=== PATIENT | male | born 1980 | race Caucasian/White ===

== ENCOUNTER 2021-05-20 22:09 | Emergency (ER) | payer MEDICAID, SELFPAY ==
[2021-05-20 22:10] VITALS: BP 140/85; PULSE 119; RESP 20; TEMP 36.7; O2SAT 98; BMI 22.8
--- NOTE | 2021-05-20 22:17 | EKG12_ITS ---
Test Reason : CP Blood Pressure : / mmHG Vent. Rate : 128 BPM Atrial Rate : 128 BPM P-R Int : 158 ms QRS Dur : 082 ms QT Int : 246 ms P-R-T Axes : 064 070 094 degrees QTc Int : 359 ms Sinus tachycardia Right atrial enlargement Septal infarct , age undetermined Abnormal ECG Confirmed by KEIRA CANCINO, KALEB ([id number]), editorial intern MARISSA GONZALEZ ([id number]) on 05/21/2021 1:32:43 PM Referred By: DIRK Confirmed By:ARTEM CROCKETT MD
--- NOTE | 2021-05-20 22:17 | ED.VIS.CHEST ---
HPI History of Present Illness Chief Complaint: Chest Pain Detail of Chief Complaint: Chest pain that started a week ago Informant: patient Narrative Narrative: Patient presents to the emergency department complaint of chest pain that started a week ago. Patient states he had continuous pain over that time. He describes pain underneath his incision where he had open heart surgery in December 2020 to repair a valve and he is not sure which valve. Surgery was done at [facility]. Patient states the pain is sharp and worse with movement and deep breath. Patient states even his shirt touching his skin makes it hurt. Currently rates his pain a 4 out of 10. Patient denies any nausea or vomiting with it. He denies shortness of breath. He denies diaphoresis. Pain is not exertional. Prior Similar Symptoms: No PFSH PFSH Medical History (Updated 05/20/21 @ 23:[address] Mitchell Solares, DO) Diabetes Neuropathy Allergy/AdvReac Type Severity Reaction Status Date / Time codeine AdvReac Hives Verified 05/20/21 22:12 Surgical History (Updated 05/20/21 @ 22:14 by Alejandra Coffey) History of heart valve replacement Hx of BKA Social History Smoking Status: Former smoker ROS ROS ED Review of Systems ROS Unobtainable: other Constitutional Constitutional ED: Reports lethargy; Denies chills, fever(s), sweats or weight loss Eyes Eyes: Denies blurry vision, change in vision or diplopia ENT ENT ED: Denies rhinorrhea or sore throat Cardiovascular Cardiovascular: Reports chest pain and racing heartbeat; Denies orthopnea Respiratory/Chest Respiratory/Chest: Reports dyspnea and dyspnea on exertion; Denies cough, orthopnea or sputum Gastrointestinal Gastrointestinal: Denies abdominal pain, diarrhea, nausea or vomiting Genitourinary Genitourinary ED: Denies dysuria, hematuria or urinary frequency Musculoskeletal Musculoskeletal: Denies arthralgias, back pain, myalgias or neck pain Integumentary Denies abscess, Abrasions or rash Neurologic Neurologic: Denies headache(s) or weakness Psychiatric Psychiatric: Denies anxiety, depression or suicidal thoughts Endocrine Endocrinology: Denies polydipsia, polyphagia or polyuria Hematologic/Lymphatic Hematologic/Lymphatic: Denies easy bleeding, easy bruising or lymphadenopathy Allergic/Immunologic Allergic/Immunologic ED: Denies mouth swelling, tongue swelling or urticaria EXAM Physical Exam Const Vital Signs: 05/20/21 22:10 05/20/21 22:18 05/20/21 22:19 Temperature 98.0 F Temperature Source Temporal Pulse Rate 119 H Respiratory Rate 20 H Respiratory Effort Normal Blood Pressure 140/85 H Blood Pressure Mean 103 Pulse Ox 98 Oxygen Delivery Method Room Air Room Air 05/20/21 23:10 Temperature Temperature Source Pulse Rate 105 H Respiratory Rate 19 H Respiratory Effort Blood Pressure 133/81 H Blood Pressure Mean Pulse Ox 98 Oxygen Delivery Method Positive well nourished and well developed General Appearance ED: well developed and NAD HEENT Reports TM's clear and moist mucous membranes normocephalic and atraumatic; Negative for trauma or tenderness Tympanic Membrane ED: Yes TM's clear Eyes PERRL and EOMs intact bilaterally General Eye ED: Negative for pale conjunctiva or scleral icterus Neck no lymphadenopathy, supple and no JVD General: Negative for tenderness Chest Wall palpation of chest normal Chest Narrative: Patient with noted sternotomy scar from prior open heart surgery. The infection looks well-healed without evidence of erythema or warmth or drainage. Patient has tenderness palpation over the area. Chest: Negative for tenderness Resp normal respiratory effort and clear to auscultation bilaterally Effort and Inspection: Negative for respiratory distress or pain with movement Auscultation: Negative for rhonchi, wheezes or diminished lung sounds Cardio regular rate, regular rhythm, S1 normal heart sound, S2 normal heart sound and no murmurs Peripheral Pulses: pulses 2+ throughout GI normal to inspection, nondistended, normoactive bowel sounds, soft to palpation, non-tender, non-distended and no masses Back/Spine no CVA tenderness and no thoracic nor lumbar tenderness Extremity normal to inspection General Extremety ED: Negative for edema General Extremity: Negative for edema Neuro oriented x3, CN's II-XII intact bilaterally, no sensory deficits noted and gait normal Sensorium / Orientation: awake, alert, oriented to person, oriented to place and oriented to time Motor Exam: strength 5/5 throughout and strength abnormal Psych mental status grossly normal Skin no rashes or lesions noted and no wounds Heart Score History: Slightly/Non-Suspicious ECG: Nonspecific Repolarization Age: </= 45 years Risk Factors: 1 or 2 Risk Factors Troponin: </= Normal Limit Score: 2 MDM MDM MDM Narrative Medical decision making narrative: IV line established on arrival. Patient placed on a hall monitor. He received aspirin. CBC with differential was normal. D-dimer was normal. Troponin was normal. Patient's blood glucose was elevated 4 1. Patient states he does not check it very often and has been noncompliant with his insulin. Patient I believe has musculoskeletal chest pain. He does not anything for pain here and states that he has ibuprofen at home. Patient advised to follow-up with his primary care physician 3 to 5 days. Lab Data Attestation: I reviewed the patient's lab results. Labs: Laboratory Results - last 24 hr 05/20/21 05/20/21 05/20/21 22:10 22:10 22:10 WBC 8.7 RBC 5.77 Hgb 14.8 Hct 44.7 MCV 77.5 L MCH 25.6 L MCHC 33.1 RDW Std Deviation 45.6 H RDW Coeff of Loc 16.3 H Plt Count 307 MPV 9.9 Immature Gran % (Auto) 0.200 Neut % (Auto) 47.8 Lymph % (Auto) 40.3 [place] % (Auto) 9.7 Eos % (Auto) 1.5 Baso % (Auto) 0.5 Absolute Neuts (auto) 4.2 Absolute Lymphs (auto) 3.50 Nucleated RBC % 0 D-Dimer Quant (PE/DVT) 0.41 Sodium 134 L Potassium 3.8 Chloride 100 Carbon Dioxide 25.0 Anion Gap 9 BUN 12 Creatinine 0.85 Estim Creat Clear Calc 104.25 Est GFR (MDRD) Af Amer 129 Est GFR (MDRD) Non-Af 107 BUN/Creatinine Ratio 14.2 Glucose 401 H Calcium 9.3 Troponin I High Sens 22 Radiography Chest X-Ray - ED: 1 View Diagnostic Testin view chest x-ray obtained interpreted by myself as no acute disease process. Official report from radiology pending. EKG Initial EKG: Attestation: I personally reviewed and interpreted this EKG as follows: Comments: Sinus rhythm with a ventricular rate of [address] changes noted laterally. Prior EKG tracings: not available for review Discharge Plan Triage Chief Complaint: Chest Pain ED Provider: Mitchell Solares Dx/Rx/DC Orders Clinical Impression: Acute chest wall pain, Hyperglycemia due to type 2 diabetes mellitus Instructions: After Heart Valve Surgery: At Home, CHEST WALL PAIN, Costochondritis (/Toddler) Primary Care Provider: Care Physician,No Primary Referrals: Ranjan Sánchez MD [STAFF PHYSICIAN] - 3-5 Days Care Physician,No Primary [Primary Care Provider] - Disposition Disposition: Home, Self Care
--- NOTE | 2021-05-20 22:25 | RAD_ITS ---
INDICATION: chest pain EXAMINATION/TECHNIQUE: X-RAY - XR Chest 1 View COMPARISON: None. FINDINGS: LINES/DEVICES: None. Intact sternotomy wires. LUNGS: Symmetric normal lung volumes. No airspace opacity or abnormal interstitial pattern. No nodule or mass. No pleural effusion or pneumothorax. MEDIASTINUM AND CARDIOVASCULAR STRUCTURES: Normal size and contour of the cardiomediastinal silhouette. No evidence of pulmonary vascular congestion. BONES AND SOFT TISSUES: No abnormality within limits of the exam. RAD/Chest 1 View (Portable) IMPRESSION: 1. No radiographic evidence of acute cardiopulmonary disease. Electronically Signed: Sathish Quinn DO at 23:15 EST Tel , Service support ,
[2021-05-20 22:26] LABS: Absolute Neutrophil Count 4.2 X10^3/uL (2.0-7.7); Basophil# 0.04 X10^3/uL; Basophil% 0.5 % (0-1); Eosinophil# 0.13 X10^3/uL; Eosinophils% 1.5 % (0-5); Hematocrit 44.7 % (40-54); Hemoglobin 14.8 g/dL (13.0-16.5); Lymphocyte % 40.3 % (19-41); Mean Corp Hgb Conc 33.1 g/dL (32-36); Mean Corpuscular Hgb 25.6 pg (27.0-32.0); Mean Corpuscular Volume 77.5 fL (80-94); Mean Platelet Vol. 9.9 fl (6.2-12.0); Monocyte# 0.84 X10^3/uL; Monocyte% 9.7 % (0-10); NRBC Flagged by Analyzer 0 % (0-5); Neutrophil # 4.15 X10^3/uL (2.7-7.7); Neutrophil % 47.8 % (47-70); Platelet Count 307 K/mm3 (150-450); RBC Distribution Width CV 16.3 % (11.6-14.6); RBC Distribution Width SD 45.6 fl (35.1-43.9); Red Blood Count 5.77 M/mm3 (4.6-6.2); White Blood Count 8.7 K/mm3 (4.4-11.0)
[2021-05-20] MEDS: 0.9% Normal Saline 1,000 ML 150 ML IV (22:27)
--- NOTE | 2021-05-20 22:33 | ED.RN ---
CALLED [facility] WHERE PATIENT HAD OPEN HEART, THEY WOULD NOT SEND US THE MEDICAL RECORDS FOR THIS PATIENT AND TOLD US TO CALL MEDICAL RECORDS IN THE MORNING.
[2021-05-20 22:39] LABS: D-Dimer Quantitative (DVT/PE) 0.41 FEU/ug/m (0.27-0.49)
[2021-05-20 22:44] LABS: Anion Gap 9 (5-15); BUN 12 mg/dL (7-18); BUN/Creat Ratio 14.2 RATIO (10-20); Calcium,Total 9.3 mg/dL (8.5-10.1); Chloride 100 mmol/L (98-107); Creatinine, Serum 0.85 mg/dL (0.70-1.30); EST Glomerular Filtration Rate 107 mL/min (>60); Est Glom Filt Rate - Afr Amer 129 mL/min (>60); Estimated Creatinine Clearance 104.25 ml/min; Glucose 401 mg/dL (74-106); Potassium 3.8 mmol/L (3.5-5.1); Sodium Level 134 mmol/L (136-145); Troponin-I HS 22 pg/mL (3.0-78.0)
[2021-05-20] MEDS: Insulin Lispro 100 UNIT/ML INSULN.PEN 10 UNIT SC (23:04)
[2021-05-20 23:10] VITALS: BP 133/81; PULSE 105; RESP 19; O2SAT 98
== END 2021-05-21 00:55 | disposition home or self-care (01) ==
PROVIDERS: Emergency Provider Emergency Medicine; Visit Provider Emergency Medicine
DX: R07.89 Other chest pain (principal); E11.65 Type 2 diabetes mellitus with hyperglycemia; Z87.891 Personal history of nicotine dependence
CPT/HCPCS: 71045; 80048; 84484; 85025; 85379; 93005; 96360; 96361; 99285; J7030; A4216

== ENCOUNTER 2023-11-21 15:00 | Outpatient (RCR) | payer MEDICAID, SELFPAY ==
--- NOTE | 2023-11-17 09:48 | HP.PTEVAL ---
Patient's Visit Information Visit Information Visit Information: EVELIO RUCKER is a 43 year old M referred to Physical Therapy by Olimpia Villegas MD with a diagnosis of S/P R above knee ambulation. Date of Evaluation: 11/16/23 Physical Therapist: Rene Wilkins DPT Visit Plan Frequency: 1x/Week Duration: 1 Week Plan: Pt. has been evaluated for need for inpatient rehab. I feel like he would very well in this setting and has a great need for gait training to increase overall [place]. Subjective Subjective: Pt. is here today for his initial evaluation with diagnosis of S/P AKA on Apr 2023. Pt. also has a history of L BKA in 2021. Pt. is currently functioning at a wheel chair level, very little ambulation except transfers with his L prosthetic. Pt. does have his R prosthetic, but no shoe on the foot. Pt. reports being able to transfer well with use of slide transfers, but does not have a shower chair so he has been using sponge bathing for bathing. Pt. reports overall no pain, but is limited with his independence. He reports being basically I prior to his most recent surgery. He reports no PT since his amputation. He reports mostly staying in the home due to his lack of independence. He would like to get back to walking in order to get back to going out in community. Limited use of new R prosthetic due to fear of falling and lack of confidence in his new prosthetic. Objective Objective: POSTURE: Seated normal, good stability noted. Pt. is able to reach outside of ZARI with out LOB, very stable in seated position. PALPATION: Pt. has no pain with palpation of either LE. He does have marked skin psoriasis, but no skin break down. NEURO: Pt. reports normal sensation in BLEs. ROM: RLE: Pt. has some tightness in his R hip flexor. LLE: knee: normal ROM, hip Normal ROM, HS length 75deg in 90/90. MMT: RLE: hip: flexion 4+/5, abd 4/5, ext 4/5. LLE: knee: ext 5/5, flexion 5/5; hip: flexion 4+/5, abd 4/5, ext 4/5. Core strength fair. R shoulder: 5/5 throughout. R elbow 5/5 throughout. L shoulder: 5/5 throughout. L elbow 5/5 throughout. Transfers: Pt. is I from WC to bed slide transfer. Pt. is I with sit to stand with use of L prosthetic, min A with use of [place] prosthetics with FWW. Pt. is very fearful of R knee giving out on him. GAIT: Pt. is able to ambulate with both prosthetics with use of FWW with MODA. He is very strong upper body and relies on this during R stance phase. His R joint did buckle on him 3 times during walking 16'. Pt. reports more fear of falling rather than fatigue. He was missing a shoe on his R prosthesis which also limited the functionality of his prosthesis and his stability. Wt. shifting in FWW: Pt. was able to complete without LOB, but did heavily use his UEs during R stance phase. He was able to don and doff prosthesis I without issues. At this point in time I feel Evelio would do great in Inpatient rehab to really focus on ADLs, gait, transfers, and general functional mobility with use of his new prosthesis in order to become more I with in home and community. Balance/Special Test Scores Lower Extremity Functional Score: 8 TUG Test Time Seconds: 58 Goals Goal 1:: STG: Pt. to be evaluation for need for Inpatient rehab. (Pt. would benefit from PT in the Inpatient rehab setting. He would be able to tolerated the intensity and time. I believe he really do well in this setting.) Goal Time Frame: 1 Week Rehabilitation Potential Physical Therapy Diagnosis: Pt. has signs and symptoms consistent with S/P R above knee amputation in Dec. Pt. has marked weakness, but more notably decreased functional mobility. He would really benefit from inpatient rehab to work on functional mobility, gait, transfers, community ambulation and stair negotation. Rehabilitation Potential: Good Anticipated Interventions Patient/Client Instruction: Educate patient on: Condition, Plan of Care, Risk Factors and Benefits of Fitness Program For the Purpose of:: To improve decision making, To facilitate caregiver knowledge, To improve self management, To prevent re-injury and To improve ability to perform tasks related to life management For the Purpose of:: To decrease pain, To increase ROM, To improve nutrient delivery to tissue, To increase oxygenation perfusion and To improve muscle performance and motor function Text: Thank you for the opportunity to evaluate your patient. For Medicare and Medicare HMO plans, please review the plan of care and approve it. It will need to be FAXED BACK to us at [phone] for Medicare purposes. For Medicare only, by signing this I certify the plan of care. Please let me know if there are questions or concerns regarding this plan of care. Physician Signature: Date:
--- NOTE | 2023-11-22 11:13 | HP.OTEVAL_ITS ---
Patient's Visit Information Visit Information Visit Information: EVELIO RUCKER is a 43 year old M, referred to Occupational Therapy by Olimpia Villegas MD, with a diagnosis of DIFFICULTY WITH ADLS, ABOVE KNEE AMPUTATION. Date of Evaluation: 11/21/23 Occupational Therapist: Elana Yuen Subjective Subjective: 43 year old male arrives with dx of hx of AKA, right (HCC), BKA, left (HCC), and impaired mobility and ADLs. Pt arrives using a wheelchair. Pt uses a L LE prosthetic for standing and walking w/ walker. Pt is not walking at all right now on own and used walker w/ PT. Can complete self care standing with support from sink counter. Pt can do most transfers (including car) however, is unable to shower and cook independently. Shower has a tub ledge, a curtain, and no handrails. Pt transfers to shower chair outside of shower to wash hair/sponge bathe. Insurance did not cover shower transfer bench. Currently lives with mother who can assist with cooking, cleaning, washing is hair. Wants to gain confidence with walking. Denies pain/numbness/tingling. Not working currently and is in process of filing for disability. Pt wants to return to walking I and gain more confidence as well as returning to normal ADLs such as bathing, cook ing, and other hobbies. pt with difficulty to navigate in his bathroom using his w/c d/t size limitations, difficulty to ambulate and not owning proper bathroom AE. this is patient's top priority along with regaining ambulation is to be able to take a shower safely as he currently has fear of falling. Objective Objective/Observation: pt arrives using wheelchair. mother present for last 10 min of evaluation. ROM ROM Comments: BUE ROM WFL Strength Strength Comments: BUE WFL Nine Hole Peg Comments: no concerns regarding [facility] Quick DASH-Disab of Arm,Shoulder& Hand Quick DASH Score: 22.7250 Rehabilitation General Assessment: pt presenting with BLE amputations that are impacting his functional indep at home with ADLs/IADLs. pt's main goals are to improve gait, ambulation, indep in self care, and cooking so that he can care for himself instead of his mom helping him. pt is being evaluated for admission into [facility] for inpatient rehab. pt is very motivated to gain as much independence as possible and therapist feels that pt would be able to tolerate frequency and intensity of inpatient rehab in order to gain indep at home. pt would benefit from inpatient therapy setting in order to learn tub transfers safely while managing BLE amputations while in a safe environment in order to transfer kno wledge to home setting. this will help build pt's confidence in his own abilities to perform this tasks safely to reduce risk of falling. pt would also benefit from improving ability to bathe independenlty while using AE as needed to compensate for inability to stand while showering. Rehabilitation Potential: Good Anticipated Interventions Anticipated Interventions: ADL Training, Education re assistive Equipment, Education re Diagnosis and Caregiver Training Visit Plan Frequency: 1x/Week Duration: 1 Week General Plan: Pt. has been evaluated for need for inpatient rehab. I feel like he would very well in this setting and has a great need for indep with shower transfers and bathing to improve overall independence at home to reduce fall risk in bathroom. TEXT: Thank you for the opportunity to evaluate your patient. For Medicare and Medicare HMO plans, please review the plan of care and approve it. It will need to be FAXED BACK to us at [phone] for Medicare purposes. Please let me know if there are questions or concerns regarding this plan of care. Physician Signature: Date:
--- NOTE | 2023-11-22 11:16 | HP.OTEVAL ---
Patient's Visit Information Visit Information Visit Information: EVELIO RUCKER is a 43 year old M, referred to Occupational Therapy by Olimpia Villegas MD, with a diagnosis of DIFFICULTY WITH ADLS, ABOVE KNEE AMPUTATION. Date of Evaluation: 11/21/23 Occupational Therapist: Elana Yuen Subjective Subjective: 43 year old male arrives with dx of hx of AKA, right (HCC), BKA, left (HCC), and impaired mobility and ADLs. Pt arrives using a wheelchair. Pt uses a L LE prosthetic for standing and walking w/ walker. Pt is not walking at all right now on own and used walker w/ PT. Can complete self care standing with support from sink counter. Pt can do most transfers (including car) however, is unable to shower and cook independently. Shower has a tub ledge, a curtain, and no handrails. Pt transfers to shower chair outside of shower to wash hair/sponge bathe. Insurance did not cover shower transfer bench. Currently lives with mother who can assist with cooking, cleaning, washing is hair. Wants to gain confidence with walking. Denies pain/numbness/tingling. Not working currently and is in process of filing for disability. Pt wants to return to walking I and gain more confidence as well as returning to normal ADLs such as bathing, cooking, and other hobbies. pt with difficulty to navigate in his bathroom using his w/c d/t size limitations, difficulty to ambulate and not owning proper bathroom AE. this is patient's top priority along with regaining ambulation is to be able to take a shower safely as he currently has fear of falling. Objective Objective/Observation: pt arrives using wheelchair. mother present for last 10 min of evaluation. ROM ROM Comments: BUE ROM WFL Strength Strength Comments: BUE WFL Nine Hole Peg Comments: no concerns regarding FMC Quick DASH-Disab of Arm,Shoulder& Hand Quick DASH Score: 22.7250 Rehabilitation General Assessment: pt presenting with BLE amputations that are impacting his functional indep at home with ADLs/IADLs. pt's main goals are to improve gait, ambulation, indep in self care, and cooking so that he can care for himself instead of his mom helping him. pt is being evaluated for admission into [facility] for inpatient rehab. pt is very motivated to gain as much independence as possible and therapist feels that pt would be able to tolerate frequency and intensity of inpatient rehab in order to gain indep at home. pt would benefit from inpatient therapy setting in order to learn tub transfers safely while managing BLE amputations while in a safe environment in order to transfer knowledge to home setting. this will help build pt's confidence in his own abilities to perform this tasks safely to reduce risk of falling. pt would also benefit from improving ability to bathe independenlty while using AE as needed to compensate for inability to stand while showering. Rehabilitation Potential: Good Anticipated Interventions Anticipated Interventions: ADL Training, Education re assistive Equipment, Education re Diagnosis and Caregiver Training Visit Plan Frequency: 1x/Week Duration: 1 Week General Plan: Pt. has been evaluated for need for inpatient rehab. I feel like he would very well in this setting and has a great need for indep with shower transfers and bathing to improve overall independence at home to reduce fall risk in bathroom. TEXT: Thank you for the opportunity to evaluate your patient. For Medicare and Medicare HMO plans, please review the plan of care and approve it. It will need to be FAXED BACK to us at [phone] for Medicare purposes. Please let me know if there are questions or concerns regarding this plan of care. Physician Signature: Date:
--- NOTE | 2024-05-08 08:43 | HP.OT.NRP ---
Patient Information Patient Information: EVELIO RUCKER was seen in my office for initial evaluation on 11/21/23. The following Plan of Care was established for this patient: POC Established Initial Frequency: 1x/Week Initial Duration: 1 Week Anticipated Interventions Anticipated Interventions: ADL Training, Education re assistive Equipment, Education re Diagnosis and Caregiver Training Last Seen Last Seen: This patient was last seen in our office 11/21/23. Pertinent comments regarding their Occupational therapy will appear below: pt was seen for OT eval only. No further apts were scheduled. pt d/c due to time lapse in services. At this point I will be discontinuing this patient from occupational therapy. I would be happy to see this patient again in the future if found appropriate by the physician. Thank you! Shayna Lundy, OTR/L, CHT
== END 2023-11-21 19:00 | disposition home or self-care (01) ==
LOC: OT 15:00
PROVIDERS: PCP Nurse Practitioner Family; Referring Provider Surgery Vascular Surgery; Visit Provider Surgery Vascular Surgery
DX: Z74.09 Other reduced mobility (principal); Z78.9 Other specified health status; Z89.611 Acquired absence of right leg above knee; Z89.512 Acquired absence of left leg below knee
CPT/HCPCS: 97161; 97165

== ENCOUNTER 2024-08-30 13:22 | Outpatient (RCR) | payer MEDICAID, SELFPAY ==
--- NOTE | 2024-08-30 14:24 | HP.PTEVAL_ITS ---
Patient's Visit Information Visit Information Visit Information: EVELIO RUCKER is a 44 year old M referred to Physical Therapy by Olimpia Villegas MD with a diagnosis of R above knee amputation, L below knee amputation. Date of Evaluation: 08/30/24 Physical Therapist: Rene Wilkins DPT Visit Plan Frequency: 1x/Week Duration: 1 Week Plan: Pt. would benefit from Inpatient rehab to increase in his ability to complete transfers, gait, dynamic and static balance in order to increase in overall I at home. He is currently able to be I at wheel chair level and does not walk much with his R prosthetic due to fear of falling and instability in stance. Subjective Subjective: Pt. is here today for his initial evaluation for need for inpatient rehab after B LE ambulation. Pt. 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 Pt. also has a below knee amputation in 2020, after diabetic ulcer that became infected after having his foot amputated. Pt. has been in a since. Pt. also had a heart surgery 2020. Pt. has prosthetics for both legs, but has not been able to walk with his RLE prosthetic due to fear of it giving out on him and weakness. Pt. is I with all bed mobility and transfers. He is limited with his house secondary to savage in the way for animals in the home. Pt. reports no pain, N/T. No meds. Pt. has not worn his R prosthetic due to fear of falling with use. Objective Objective: POSTURE: Pt. has normal sitting posture. No issues PALPATION: Pt. has psoriais on LEs, but no marked issues otherwise. NEURO: Pt. has normal sensation throughout BLEs. ROM: R hip: flexion full motion, ext 0deg with over pressure, abd 35deg. LLE: knee: 0-0-120deg, hip: flexion 120deg, abd 45deg, ext 10deg. MMT: RLE; hip: flexion 36.5#, and 41.7#, ext 36.7# LLE; hip: flexon 32.5#, abd 39.4, ext 38.5# Transfers: Pt. is able to complete SPT with FWW OTILIO with 1 LE donned Pt. is able to complete slide transfer I Pt. is able to complete SPT with bilateral LEs with FWW, but is very hesitant to bearing wt through R leg and his prosthetic tends to bend and he does not trust it. He has the strength to proceed with gait training, but would benefit from intense therapy to increase ability to walk and be come I at home. Pt. was able to ambulate 35' with FWW with LLE only with heavy use of UEs. We added his RLE and FWW. He was able to ambulate 37' but heavily used UEs during R stance phase due to R knee sudden flexion. He is able to stabilize in stance without AD, but has to lean forward with keeping his COG posteriorly in order to maintain R knee extension. When he tries to stand upright his R prosthetic tends to buckle causing him to lose his balance. He is very strong in BLEs and UEs. He does have marked R hip flexor tightness. In my opinion Evelio would benefit from Inpatient stay to increase his ability with all functional mobility. He has issues with his stability without use of UEs in AD for safety. Pt's R prosthetic tends to buckle with increased upright posture. Balance/Special Test Scores Lower Extremity Functional Score: 10 Goals Goal 1:: STG: Pt. to be evaluated for need for inpatient rehab PT. Rehabilitation Potential Physical Therapy Diagnosis: Pt. has signs and symptoms consistent with R above knee amputation, L below knee amputation. Pt. has not been able to use his R prosthetic due to fear of falling. Pt. is not doing well with his strength, but would benefit from inpatient rehab to work on functional mobility allowing for increased I at home. Rehabilitation Potential: Good Anticipated Interventions Patient/Client Instruction: Educate patient on: Condition, Plan of Care, Risk Factors and Benefits of Fitness Program For the Purpose of:: To increase ROM, To improve nutrient delivery to tissue, To increase oxygenation perfusion, To improve decision making, To facilitate caregiver knowledge, To improve self management, To prevent re-injury and To improve ability to perform tasks related to life management Therapeutic Exercise to Include: Strength training, Endurance training, Balance training, Coordination, Flexibilty training and Gait and locomotor training For the Purpose of:: To decrease pain, To decrease swelling/inflammation, To increase ROM, To improve nutrient delivery to tissue, To increase oxygenation perfusion, To improve muscle performance and motor function, To improve ability to perform ADL's and To increase tolerance to activity/condition/position Text: Thank you for the opportunity to evaluate your patient. For Medicare and Medicare HMO plans, please review the plan of care and approve it. It will need to be FAXED BACK to us at [phone] for Medicare purposes. For Medicare only, by signing this I certify the plan of care. Please let me know if there are questions or concerns regarding this plan of care. Physician Signature: D ate:
--- NOTE | 2024-08-30 15:23 | HP.OTEVAL_ITS ---
Patient's Visit Information Visit Information Visit Information: EVELIO RUCKER is a 44 year old M, referred to Occupational Therapy by Olimpia Villegas MD, with a diagnosis of L BKA, R AKA. Date of Evaluation: 08/30/24 Occupational Therapist: Deirdre Haynes Subjective Subjective: Pt is a 44 y/o male who presents for this OT evaluation for potential placement to [facility] due to bilateral LE amputations with R AKA (2022), and L BKA (2020). Pt lives at home with family. Pt reports modified independence with ADLs due to necessity to be in w/c at this time. He presents with decreased independence in ability to participate in IADLs due to environmental barriers from decreased strength and endurance with use of prosthetics. ADLs Comments: Pt reports independence with all ADLs with mod I, able to transfer to toilet and couch from w/c. Pt utilizes tub bench for showering. Increased difficulty with IADLs due to environmental barriers, requiring family present to assist with needs. Would like to be independent with prosthetic to mobilize around home for ADLs/IADLs. Objective Objective/Observation: Pt agreeable and participates to skilled intervention for evaluation. ROM Shoulder: R&L: WNL Elbow: R&L: WNL Forearm: R&L: WNL Wrist: R&L: WNL Opposition: R&L: WNL ROM Comments: All ROM WNL with exception of L 5th digit, limited by psoriasis Strength Shoulder: R:22.0# L: 19.6# Elbow: R:22.9# L: 35.6# Forearm: R:23.0# L: 26.2# Wrist: R:13.6# L: 17.0# Agricultural Extension Specialist: R:75# L: 70# Lateral Pinch: R:14# L: 10# Tripod Pinch: R:14# L: 6# Tip-to-Tip Pinch: R:11# L: 4# Strength Comments: Strength limited for age and safe functional management for performance with ADLs/IADLs. Quick DASH-Disab of Arm,Shoulder& Hand Quick DASH Score: 36.3625 Rehabilitation General Assessment: Pt lives at home with family, in modular home, with 4 steps to enter. Pt reports modified independence with ADLs, utilizing w/c throughout home, limiting ability to mobilize for IADL participation. Family completes all IADLs at this time due to environmental barriers. Pt would like to participate in mobility with prosthetics around home, but require increased safety, strength, endurance and dynamic standing balance to participate in ADLs/IADLs to full capacity. Pt would benefit from continued extensive therapy for safe participation with ADLs/IADLs due to safety concerns and transportation concerns. Rehabilitation Potential: Good Visit Plan Frequency: IPR/TCU TEXT: Thank you for the opportunity to evaluate your patient. For Medicare and Medicare HMO plans, please review the plan of care and approve it. It will need to be FAXED BACK to us at [phone] for Medicare purposes. Please let me know if there are questions or concerns regarding this plan of care. Physician Signature: Date:
--- NOTE | 2024-08-30 15:23 | HP.OTEVAL_ITS ---
Patient's Visit Information Visit Information Visit Information: EVELIO RUCKER is a 44 year old M, referred to Occupational Therapy by Olimpia Villegas MD, with a diagnosis of L BKA, R AKA. Date of Evaluation: 08/30/24 Occupational Therapist: Deirdre Haynes Subjective Subjective: Pt is a 44 y/o male who presents for this OT evaluation for potential placement to [facility] due to bilateral LE amputations with R AKA (2022), and L BKA (2020). Pt lives at home with family. Pt reports modified independence with ADLs due to necessity to be in w/c at this time. He presents with decreased independence in ability to participate in IADLs due to environmental barriers from decreased strength and endurance with use of prosthetics. ADLs Comments: Pt reports independence with all ADLs with mod I, able to transfer to toilet and couch from w/c. Pt utilizes tub bench for showering. Increased difficulty with IADLs due to environmental barriers, requiring family present to assist with needs. Would like to be independent with prosthetic to mobilize around home for ADLs/IADLs. Objective Objective/Observation: Pt agreeable and participates to skilled intervention for evaluation. ROM Shoulder: R&L: WNL Elbow: R&L: WNL Forearm: R&L: WNL Wrist: R&L: WNL Opposition: R&L: WNL ROM Comments: All ROM WNL with exception of L 5th digit, limited by psoriasis Strength Shoulder: R:22.0# L: 19.6# Elbow: R:22.9# L: 35.6# Forearm: R:23.0# L: 26.2# Wrist: R:13.6# L: 17.0# Drawer In Stitch Bonding Machine: R:75# L: 70# Lateral Pinch: R:14# L: 10# Tripod Pinch: R:14# L: 6# Tip-to-Tip Pinch: R:11# L: 4# Strength Comments: Strength limited for age and safe functional management for performance with ADLs/IADLs. Quick DASH-Disab of Arm,Shoulder& Hand Quick DASH Score: 36.3625 Rehabilitation General Assessment: Pt lives at home with family, in modular home, with 4 steps to enter. Pt reports modified independence with ADLs, utilizing w/c throughout home, limiting ability to mobilize for IADL participation. Family completes all IADLs at this time due to environmental barriers. Pt would like to participate in mobility with prosthetics around home, but require increased safety, strength, endurance and dynamic standing balance to participate in ADLs/IADLs to full capacity. Pt would benefit from continued extensive therapy for safe participation with ADLs/IADLs due to safety concerns and transportation concerns. Rehabilitation Potential: Good Visit Plan Frequency: IPR/TCU TEXT: Thank you for the opportunity to evaluate your patient. For Medicare and Medicare HMO plans, please review the plan of care and approve it. It will need to be FAXED BACK to us at [phone] for Medicare purposes. Please let me know if there are questions or concerns regarding this plan of care. Physician Signature: Date:
== END 2024-08-30 19:00 | disposition home or self-care (01) ==
LOC: PT 13:22
PROVIDERS: PCP Nurse Practitioner Family; Referring Provider Surgery Vascular Surgery; Visit Provider Surgery Vascular Surgery
DX: Z89.512 Acquired absence of left leg below knee (principal); Z89.611 Acquired absence of right leg above knee
CPT/HCPCS: 97161; 97166